=== PATIENT | male | born 1975 | race Caucasian/White ===

== ENCOUNTER → 2021-03-06 08:08 | Outpatient (CLI) | payer OTHER, SELFPAY ==
[2021-03-06] MEDS: COVID-19 VACC #1, MRNA(MOD) 100 MCG/0.5 ML VIAL IM (08:16)
== END ==
PROVIDERS: Visit Provider Internal Medicine
DX: Z23 Encounter for immunization (principal)
CPT/HCPCS: 0011A; 91301

== ENCOUNTER → 2021-04-03 07:37 | Outpatient (CLI) | payer OTHER, SELFPAY ==
[2021-04-03] MEDS: COVID-19 VACC #2, MRNA(MOD) 100 MCG/0.5 ML VIAL IM (07:55)
== END ==
PROVIDERS: Visit Provider Internal Medicine
DX: Z23 Encounter for immunization (principal)
CPT/HCPCS: 0012A; 91301

== ENCOUNTER → 2022-09-09 08:10 | Outpatient (CLI) | payer OTHER, SELFPAY | PROVIDERS: Visit Provider Nurse Practitioner Family | DX: J02.9 Acute pharyngitis, unspecified (principal) | CPT/HCPCS: 87070 ==

== ENCOUNTER → 2023-04-15 10:52 | Outpatient (CLI) | payer OTHER, SELFPAY ==
[2023-04-15 12:04] LABS: Alanine Aminotransferase 36 IU/L (<50); Albumin 4.2 g/dL (3.5-5.0); Albumin Globulin Ratio 1.5 (1.0-2.8); Alkaline Phosphatase 92 U/L (38-126); Aspartate Aminotransferase 26 IU/L (17-59); BUN Creatinine Ratio 15.8 (6-22); Bilirubin Total 0.7 mg/dL (0.2-1.3); Blood Urea Nitrogen 12 mg/dL (9-20); Calcium 9.2 mg/dL (8.4-10.2); Carbon Dioxide 30 mmol/L (22-32); Chloride 103 mmol/L (98-107); Cholesterol 204 mg/dL (140-199); Estimated Glomerular Filt Rate > 60 mL/min (>60); Globulin 2.8 g/dL (1.7-4.1); Glucose 98 mg/dL (70-100); HDL Cholesterol 39 mg/dL (40-60); HEMOLYSIS < 15 (0-50); LDL Cholesterol Calculated 133 mg/dL (<100); Potassium 4.3 mmol/L (3.4-5.1); Sodium 140 mmol/L (137-145); Triglycerides 160 mg/dL (35-150)
[2023-04-15 12:08] LABS: High Sensitivity CRP - Cardiac 3.1 mg/L (1.0-3.0)
== END ==
PROVIDERS: PCP Family Medicine; Referring Provider Family Medicine; Visit Provider Family Medicine
DX: E78.5 Hyperlipidemia, unspecified (principal); E66.9 Obesity, unspecified
CPT/HCPCS: 36415; 80053; 80061; 86140

== ENCOUNTER 2023-06-08 13:26 | Day surgery (SDC) | payer OTHER, SELFPAY ==
--- NOTE | 2023-06-08 | PATH_ITS ---
[facility] Accession Number: [id number] No. of containers..01 Tissue . 01 Material submitted: . buttock - RIGHT BUTTOCK . 01 Clinical history: . LESION . 01 Diagnosis: Right Buttock, Excision: Fibroepithelial polyp, inflamed. [facility] 06/15/20232040 Local . 01 Electronically signed: . Julieth Banda MD, Dermatopathologist NPI- [id number] . 01 Gross description: . Received in formalin, labeled with the patient's name and R buttock lesion, is a 2.2 x 1.5 cm excision of white-poole skin with a 1.9 x 1.1 cm, raised, polypoid nodule up to 1.2 cm in height. The specimen is inked blue, sectioned, and submitted entirely in cassettes A1-A3. ([id number]) /[facility] 06/16/2023 1053 Local . 01 Pathologist provided ICD-10: D23.9 . 01 CPT . 861674 Specimen Comment: A courtesy copy of this report has been sent to [phone] Performed at: 01 [facility] [address] [place] [address], [place], [place] [id number] MD Ryan Mata MD Phone: [phone]
[2023-06-08 14:24] VITALS: BMI 29.5
[2023-06-08 14:42] VITALS: BP 137/77; PULSE 50; RESP 28; TEMP 36.2; O2SAT 100
[2023-06-08] MEDS: LACTATED RINGERS 1,000 ML 42 ML IV (14:45)
--- NOTE | 2023-06-08 16:03 | P.HP_ITS ---
History of Present Illness History of Present Illness Date Patient Seen: 06/08/23 Time Patient Seen: 16:03 Chief complaint: Colonoscopy Narrative: 48-year-old man here for screening colonoscopy. Please refer to the H and P from March 2023 for further detail. [facility] Medical History (Updated 05/25/23 @ 11:46 by Joel Hernandez MD) Hearing decreased Vision disorder Surgical History History of third molar tooth extraction Family History (Updated 04/18/23 @ 21:51 by Milla Osman) Grandfather Cancer History of heart disease Social History marital status: household members: spouse lives independently: Yes occupational status: employed Smoking Status: Never smoker alcohol intake: current Meds Home Medications and Allergies Home Medications Medication Instructions Recorded Confirmed Type sodium,potassium,mag sulfates 17.5 See Rx Instructions PO .COMPLEX 04/15/23 06/08/23 Rx gram-3.13 gram-1.6 gram oral soln #354 mL (Suprep Bowel Prep Kit) acetaminophen 500 mg tablet 1,000 mg PO Q6H PRN Pain (Scale 06/08/23 06/08/23 History (Acetaminophen Extra Strength) Score 1-3) cetirizine 10 mg tablet (Zyrtec) 10 mg PO DAILY PRN Allergy Symptoms 06/08/23 06/08/23 History sildenafil 100 mg tablet (Viagra) 100 mg PO DAILY PRN Sexual Activity 06/08/23 06/08/23 History Allergies Allergy/AdvReac Type Severity Reaction Status Date / Time Penicillins [PENICILLINS] Allergy Unknown childhood Verified 06/08/23 14:19 reaction-unknown Exam Vital Signs (past 8 hours): - 06/08/23 14:42 Temperature 97.2 F L Pulse Rate 50 L Respiratory Rate 28 H Blood Pressure 137/77 Pulse Oximetry 100 Oxygen Delivery Method Room Air Oxygen Delivery Method Room Air Narrative Exam Narrative: General adult man alert oriented no acute distress Abdomen soft nontender nondistended Assessment & Plan Assessment & Plan narrative: 48-year-old man here for screening colonoscopy and excision of a skin tag from buttock. Overview procedure discussed. Operative risks including hemorrhage, this diagnosis intestinal injury discussed. Questions have been answered he is in agreement with this plan.
[2023-06-08] MEDS: BUPIVACAINE 0.5% (PF) 10 ML VIAL 20 ML INJ (16:20)
[2023-06-08 16:37] VITALS: BP 103/57; PULSE 67; RESP 13; TEMP 36.1; O2SAT 97
[2023-06-08 16:42] VITALS: BP 102/60; PULSE 57; RESP 14; O2SAT 97
--- NOTE | 2023-06-08 16:44 | PM.OP.COLON ---
Operative Date/Time/Diagnoses Date of procedure: 06/08/23 Time of procedure: 16:44 Pre-op diagnosis: Colorectal screening. 4 cm soft tissue mass of buttock Post-op diagnosis: same Procedure & Clinicians Study performed: Colonoscopy Excision of 4 cm soft tissue mass from buttock Same procedure as scheduled: Yes Indications: Colorectal screening Surgeon: Minh Koehler Procedure Notes Procedure in detail: The history and physical was performed/updated and the patient is ASA class is 2. The procedure was discussed in detail with the patient. Potential risks complications including infection, bleeding, missed diagnosis, perforation, need for surgery, and were explained. Their questions were answered and informed consent was obtained. Patient was brought to the procedure room and placed standard monitoring equipment. The patient's vital signs were monitored continuously throughout the entire procedure. Prior to starting time-out was performed. The patient was placed in the left lateral recumbent position. Procedural sedation was administered by anesthesia. Examination began with a thorough inspection of the perianal area there was no evidence of fissures, fistulae, external hemorrhoids or cutaneous malignancy. The colonoscopy scope was then placed into the anal canal and was advanced to the cecum, which was identified by the ileocecal valve, the appendiceal orifice and the confluence of the taenia. The scope was then slowly withdrawn examining colon thoroughly in all directions, irrigating it of any residual stool. Unremarkable colon. No masses or polyps. The patient tolerated the procedure well. They will be discharged once criteria are met. The prep was of good/excellent quality. The withdrawl time was 6 minutes. Following completion of the colonoscopy the right buttock was prepped and draped in sterile fashion. A elliptical incision was made around the mass and it was excised from the skin. Hemostasis was achieved. The wound was then closed with interrupted nylon suture and a Band-Aid was applied. Tolerated the procedure well and was transferred to recovery in stable condition. Specimen(s): other (Right buttock lesion) Impression: Normal colonoscopy Post-procedure Recommendations: Colonoscopy in 10 years Plan for aftercare: Follow up 2 weeks for suture removal Disposition: same day surgery
[2023-06-08 16:47] VITALS: BP 109/61; PULSE 53; RESP 12; O2SAT 98
[2023-06-08 16:51] VITALS: BP 109/61; PULSE 71; RESP 19; O2SAT 98
[2023-06-08 17:12] VITALS: BP 124/77; PULSE 54; RESP 18; TEMP 36.1; O2SAT 100
== END 2023-06-08 17:25 | disposition home or self-care (01) ==
PROVIDERS: PCP Family Medicine; Referring Provider Surgery; Visit Provider Surgery
PROC: 0DJD8ZZ Inspection of Lower Intestinal Tract, Via Natural or Artificial Opening Endoscopic (ICD-10-PCS; CPT 45378; principal; 2023-06-08 14:30)
DX: Z12.11 Encounter for screening for malignant neoplasm of colon (principal); D23.9 Other benign neoplasm of skin, unspecified
CPT/HCPCS: 11404; 45378; J3010

== ENCOUNTER → 2023-09-03 14:02 | Outpatient (CLI) | payer OTHER, SELFPAY ==
[2023-09-03 15:16] LABS: Semen Sperm Prescence Post-Vas Present (ABSENT)
== END ==
PROVIDERS: PCP Family Medicine; Referring Provider Family Medicine; Visit Provider Family Medicine
DX: Z30.2 Encounter for sterilization (principal)
CPT/HCPCS: 89321

== ENCOUNTER → 2023-09-21 11:32 | Outpatient (CLI) | payer OTHER, SELFPAY ==
[2023-09-21 13:32] LABS: High Sensitivity CRP - Cardiac 1.3 mg/L (1.0-3.0)
[2023-09-23 14:35] LABS: PSA Free % 47.7 % (.); PSA, Total 1.3 ng/mL (0.0-4.0)
== END ==
PROVIDERS: PCP Family Medicine; Referring Provider Family Medicine; Visit Provider Family Medicine
DX: N52.9 Male erectile dysfunction, unspecified (principal); N13.9 Obstructive and reflux uropathy, unspecified; E66.9 Obesity, unspecified
CPT/HCPCS: 36415; 84153; 84154; 86140

== ENCOUNTER → 2023-10-29 14:02 | Outpatient (CLI) | payer OTHER, SELFPAY ==
[2023-10-29 14:45] LABS: Semen Sperm Prescence Post-Vas Absent (ABSENT)
== END ==
PROVIDERS: PCP Family Medicine; Referring Provider Family Medicine; Visit Provider Family Medicine
DX: Z30.2 Encounter for sterilization (principal)
CPT/HCPCS: 89321

== ENCOUNTER → 2024-01-13 07:20 | Outpatient (CLI) | payer OTHER, SELFPAY ==
--- NOTE | 2024-01-13 07:22 | DI.RAD.S_ITS ---
PROCEDURE: XR SHOULDER RT MIN 2V INDICATIONS: Right anterior shoulder discomfort TECHNIQUE: 3 views of the shoulder were acquired. COMPARISON: None. FINDINGS: Bones: No acute fractures or dislocations. No suspicious bony lesions. Visualized ribs appear intact. Mild superior subluxation of the distal clavicle relative to the acromion. Soft tissues: Small calcification is seen posterior to the humeral head is likely related to calcific tendinopathy. IMPRESSION: 1. Mild superior subluxation of the distal clavicle relative to the acromion, possibly related to acromioclavicular separation if there has been recent injury versus secondary to degenerative changes or congenital variation. 2. Calcification posterior to the humeral head is suspicious for calcific tendinopathy. Approved by: Jose D Welch M.D. on 01/13/2024 at 7:54
== END ==
PROVIDERS: PCP Family Medicine; Referring Provider Physician Assistant; Visit Provider Physician Assistant
DX: S43.111A Subluxation of right acromioclavicular joint, initial encounter (principal); M25.511 Pain in right shoulder
CPT/HCPCS: 73030

== ENCOUNTER → 2025-05-31 12:38 | Outpatient (CLI) | payer OTHER, SELFPAY ==
[2025-05-31 14:01] LABS: COVID-19 CEPHEID 4-PLEX PCR POSITIVE (Negative); Influenza A - CEPHEID Flu A NEGATIVE (NEGATIVE); Influenza B - CEPHEID Flu B NEGATIVE (NEGATIVE)
== END ==
PROVIDERS: PCP Family Medicine; Visit Provider Student in an Organized Health Care Education/Training Program
DX: R05.1 Acute cough (principal); J02.9 Acute pharyngitis, unspecified
CPT/HCPCS: 87070; 87147; 87637